=== PATIENT | female | born 1980 | race Caucasian/White ===

== ENCOUNTER → 2024-01-30 08:31 | Outpatient (REF) | payer BC, SELFPAY | LOC: RAD 08:31 | PROVIDERS: ATTENDING PHYSICIAN Family Medicine | DX: R13.10 Dysphagia, unspecified (principal) | CPT/HCPCS: 74210 ==

== ENCOUNTER → 2024-02-01 06:32 | Outpatient (REF) | payer BC, SELFPAY | LOC: HWWDC 06:32 | PROVIDERS: ATTENDING PHYSICIAN Family Medicine | DX: Z12.31 Encounter for screening mammogram for malignant neoplasm of breast (principal) | CPT/HCPCS: 77063; 77067 ==

== ENCOUNTER → 2025-05-06 17:01 | Outpatient (REF) | payer OTHER, SELFPAY | LOC: WDC 17:01 | PROVIDERS: ATTENDING PHYSICIAN Family Medicine | DX: Z12.39 Encounter for other screening for malignant neoplasm of breast (principal); Z12.31 Encounter for screening mammogram for malignant neoplasm of breast | CPT/HCPCS: 77063; 77067 ==